=== PATIENT | female | born 1990 | race American Indian/Alaskan Native ===

== ENCOUNTER 2017-06-07 22:46 | Outpatient (CLI) | payer OTHER ==
[2017-06-07] MEDS ORDERED: LACTATED RINGERS 1,000 ML IV ONE (23:00)
[2017-06-07 23:14] VITALS: BP 107/59
[2017-06-08 00:09] LABS: Bilirubin,Urine NEG (Negative); Blood,Urine NEG (Negative); Ketones,Urine TR mg/dL (Negative); Leukocyte Esterase,Urine MOD (Negative); Mucus,Urine 3+ /HPF; Nitrite,Urine NEG (Negative); Urobilinogen,Urine < 2.0 mg/dL (<2.0)
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
[2017-06-08] MEDS ORDERED: BRETHINE ONE (02:33)
[2017-06-08] MEDS ORDERED: BRETHINE SUB-Q ONE (02:35)
== END 2017-06-08 03:15 | disposition home or self-care (01) ==
LOC: TRG 22:46
PROVIDERS: ATTEND Obstetrics & Gynecology
DX: O47.03 False labor before 37 completed weeks of gestation, third trimester (principal); Z3A.29 29 weeks gestation of pregnancy
CPT/HCPCS: 76805; 81001; 96360; 96361; 96372; J3105; J7120